=== PATIENT | female | born 1985 | race Caucasian/White ===

== ENCOUNTER 2016-06-02 00:18 | Inpatient (IN) | payer BC ==
[~2016-06-02] VITALS: Ht 165.1 cm; Wt 97.1 kg
[2016-06-02] MEDS ORDERED: LIDOCAINE 1% BUFFERED 1 ML SYR ONE (01:49)
[2016-06-02 01:50] VITALS: Ht 165.1 cm; Wt 97.1 kg
[2016-06-02] MEDS: LACT RINGERS 1,000 ML IV SCH ×4 (02:14→23:37)
[2016-06-02] MEDS: PROMETHAZINE 25 MG/ML VIAL IV PRN ×2 (02:15→06:46)
[2016-06-02] MEDS: MEPERIDINE 25 MG/ML IV PRN ×5 (02:15→20:37)
[2016-06-02] MEDS ORDERED: LIDOCAINE 1% BUFFERED 1 ML SYR INTRADERM PRN (02:35)
[2016-06-02] MEDS ORDERED: CEFAZOLIN 2,000 MG in SODIUM CHLORIDE 0.9% 100 ML IV ONE (02:45)
[2016-06-02] MEDS ORDERED: MEPERIDINE 25 MG/ML IV PRN (08:55)
[2016-06-02] MEDS ORDERED: PROMETHAZINE 25 MG/ML VIAL IV PRN ×2 (08:55→14:55)
[2016-06-02] MEDS ORDERED: CEFAZOLIN 2000 MG/100 ML IV SCH (08:55)
[2016-06-02] MEDS: CEFAZOLIN 2,000 MG in SODIUM CHLORIDE 0.9% 100 ML IV SCH ×2 (11:22→19:07)
[2016-06-02 15:10] VITALS: BP_SYST 130; RESP 18; TEMP 99
[2016-06-02] MEDS: OXYCODONE/APAP 5/325 TAB PO PRN ×3 (15:20→23:41)
[2016-06-02 18:20] VITALS: BP_SYST 111; RESP 20; TEMP 99.2
[2016-06-02] MEDS: ONDANSETRON 4 MG VIAL IV PUSH PRN (20:37)
[2016-06-02 22:13] VITALS: BP_SYST 112; TEMP 99
[2016-06-03 02:38] VITALS: BP_SYST 122; RESP 20; TEMP 98.5
[2016-06-03] MEDS: MEPERIDINE 25 MG/ML IV PRN ×2 (02:38→08:44)
[2016-06-03] MEDS ORDERED: MISSING DOSE XX ONE (02:55)
[2016-06-03] MEDS: CEFAZOLIN 2,000 MG in SODIUM CHLORIDE 0.9% 100 ML IV SCH ×2 (03:05→11:31)
[2016-06-03 03:38] VITALS: RESP 18
[2016-06-03] MEDS: OXYCODONE/APAP 5/325 TAB PO PRN ×2 (05:54→10:49)
[2016-06-03] MEDS: LACT RINGERS 1,000 ML IV SCH (06:30)
[2016-06-03] MEDS ORDERED: CEFTRIAXONE 1 GM in SODIUM CHLORIDE 0.9% 50 ML IV ONE (12:30)
[2016-06-03] MEDS ORDERED: MEPERIDINE 25 MG/ML IM ONE (13:00)
[2016-06-03] MEDS: ONDANSETRON 4 MG VIAL IV PUSH PRN (13:05)
== END 2016-06-03 14:30 | disposition home or self-care (01) | DRG 781 ==
LOC: LDOP 00:18 → LD 09:50
PROVIDERS: ADMIT Obstetrics & Gynecology; ATTEND Obstetrics & Gynecology
DX: O23.03 Infections of kidney in pregnancy, third trimester (principal); O99.613 Diseases of the digestive system complicating pregnancy, third trimester; Z3A.35 35 weeks gestation of pregnancy
CPT/HCPCS: 74000; 76775; 76801

== ENCOUNTER 2016-06-16 11:46 | Inpatient (IN) | payer BC ==
[~2016-06-16] VITALS: Ht 165.1 cm; Wt 93.4 kg
[2016-06-16] VITALS (8 sets, daily range): BP systolic 116–135; RESP 18; Ht 165.1 cm; Wt 93.4 kg
[~2016-06-16 11:46] MED LIST: LIDOCAINE 2% 5 ML IV ONE
[2016-06-16] MEDS ORDERED: FAMOTIDINE 20 MG INJ IV PRN (14:30)
[2016-06-16] MEDS ORDERED: ALU/MAG/SIM 30 ML UDC PO PRN (14:30)
[2016-06-16] MEDS ORDERED: METOCLOPRAMIDE 10 MG/2 ML VIAL IV PUSH PRN (14:30)
[2016-06-16] MEDS ORDERED: TERBUTALINE 1 MG/ML VIAL SUBQ PRN (14:30)
[2016-06-16] MEDS ORDERED: ACETAMINOPHEN 325 MG TAB PO PRN (14:30)
[2016-06-16] MEDS ORDERED: ONDANSETRON 4 MG VIAL IV PRN (14:30)
[2016-06-16] MEDS ORDERED: FAMOTIDINE 20 MG TAB PO PRN (14:30)
[2016-06-16] MEDS ORDERED: CEFAZOLIN (LD/OB) 100 ML IV PRN (14:30)
[2016-06-16] MEDS ORDERED: LIDOCAINE 1% BUFFERED 1 ML SYR INTRADERM PRN (14:30)
[2016-06-16] MEDS ORDERED: PROMETHAZINE 25 MG/ML VIAL IV PRN (14:30)
[2016-06-16] MEDS ORDERED: LIDOCAINE 1% 30 ML PF INFILTRATE ONE (14:30)
[2016-06-16] MEDS: LACT RINGERS 1,000 ML IV SCH ×2 (14:53→16:46)
[2016-06-16] MEDS ORDERED: Flu Vaccine Quadrivalent 60 MCG/0.5 ML IM.VACC ONE (15:15)
[2016-06-16] MEDS ORDERED: FENTANYL 100 MCG/2 ML AMP ONE (15:49)
[2016-06-16] MEDS ORDERED: ROPIV/FENT 0.2%-2MCG/ML 100 ML EPIDURAL ONE (15:49)
[2016-06-16] MEDS ORDERED: OXYTOCIN 15 UNITS/250 ML NS 500 ML IV ONE (15:49)
[2016-06-16] MEDS ORDERED: FENTANYL 100 MCG/2 ML AMP EPIDURAL ONE (16:30)
[2016-06-16] MEDS ORDERED: LACT RINGERS 500 ML IV ONE (16:30)
[2016-06-16] MEDS ORDERED: SODIUM CHLORIDE 0.9% 500 ML IV PRN (16:30)
[2016-06-16] MEDS ORDERED: LACT RINGERS 500 ML IV PRN (16:30)
[2016-06-16] MEDS ORDERED: ROPIV/FENT 0.2%-2MCG/ML 100 ML EPIDURAL SCH (16:30)
[2016-06-16] MEDS ORDERED: OXYTOCIN 15 UNITS/250 ML NS 15 UNITS in PART FILL PIGGYBACK 1 EA IV SCH (17:05)
[2016-06-16] MEDS ORDERED: OXYTOCIN 15 UNITS/250 ML NS 250 ML IV SCH (18:10)
[2016-06-16] MEDS ORDERED: ASTRINGENT MED PADS 40'S TOPICAL PRN (18:10)
[2016-06-16] MEDS ORDERED: ZOLPIDEM 5 MG TAB PO PRN (18:10)
[2016-06-16] MEDS ORDERED: MAG HYDROX 30 ML UDC PO PRN (18:10)
[2016-06-16] MEDS ORDERED: TDaP 0.5 ML VIAL IM.VACC ONE (18:10)
[2016-06-16] MEDS ORDERED: MEASLES,MUMPS,RUBELLA VAC SUBQ.VACC ONE (18:10)
[2016-06-16] MEDS ORDERED: **ONLY ANESTEHSIA MAY ORDER OPIATES WHILE ON EPIDURAL XX SCH (20:00)
[2016-06-16] MEDS: Ibuprofen 600 MG TAB PO PRN (23:45)
[2016-06-17 01:29] VITALS: BP_SYST 126; RESP 16; TEMP 98.4
[2016-06-17 05:55] VITALS: BP_SYST 139; RESP 18; TEMP 98.3
[2016-06-17] MEDS: Ibuprofen 600 MG TAB PO PRN ×3 (06:15→23:41)
[2016-06-17] MEDS: DOCUSATE SOD 100 MG CAP PO SCH (08:53)
[2016-06-17 09:36] VITALS: BP_SYST 127; RESP 20; TEMP 97.9
[2016-06-17 13:30] VITALS: BP_SYST 122; RESP 18; TEMP 97.7
[2016-06-18] MEDS: Ibuprofen 600 MG TAB PO PRN ×2 (05:42→12:08)
[2016-06-18 05:50] VITALS: BP_SYST 130; RESP 18; TEMP 97.9
[2016-06-18] MEDS: DOCUSATE SOD 100 MG CAP PO SCH (08:34)
[2016-06-18 09:19] VITALS: BP_SYST 131; TEMP 98.1
[2016-06-18 09:20] VITALS: RESP 24
[2016-06-18] MEDS ORDERED: TDaP 0.5 ML VIAL IM.VACC ONE (13:07)
[2016-06-18 15:33] VITALS: BP_SYST 131; RESP 24; TEMP 98.1
== END 2016-06-18 15:56 | disposition home or self-care (01) | DRG 775 ==
LOC: LDOP 11:46 → LD 14:26 → OB 21:55
PROVIDERS: ADMIT Obstetrics & Gynecology; ATTEND Obstetrics & Gynecology
PROC: 10E0XZZ Delivery of Products of Conception, External Approach (ICD-10-PCS; principal; 2016-06-16)
PROC: 10907ZC Drainage of Amniotic Fluid, Therapeutic from Products of Conception, Via Natural or Artificial Opening (ICD-10-PCS; 2016-06-16)
DX: O80 Encounter for full-term uncomplicated delivery (principal); Z3A.37 37 weeks gestation of pregnancy; Z37.0 Single live birth
CPT/HCPCS: 81002; 82803; 85014; 85018; 85025; 90471; 96372